=== PATIENT | male | born 1960 | race Hispanic/Latino ===

== ENCOUNTER → 2021-12-03 | Outpatient (CLI) | payer BC ==
[~2021-12-03] MED LIST: GADOBENATE DIMEGLUMINE 1 ML IV ONE
[2021-12-03 12:41] LABS: CREATININE, SERUM 0.74 mg/dL (0.72-1.25)
== END ==
LOC: MRI 11:37
PROVIDERS: ATTEND Family Medicine
DX: C61 Malignant neoplasm of prostate (principal); C79.51 Secondary malignant neoplasm of bone; G89.3 Neoplasm related pain (acute) (chronic); M25.551 Pain in right hip; I69.398 Other sequelae of cerebral infarction
CPT/HCPCS: 36415; 70551; 82565; 84520; A9577